=== PATIENT | female | born 1965 | race Caucasian/White ===

== ENCOUNTER 2025-01-27 19:16 | Emergency (ER) | payer MEDICARE ==
[2025-01-27] MEDS ORDERED: EPINEPHRINE ABBOJECT 1 MG/10 ML IV ONE (19:17)
[2025-01-27 19:49] VITALS: PULSE 0; RESP 12; O2SAT 100
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
== END 2025-01-27 22:00 | disposition expired ==
LOC: ED 19:16
DX: T20.39XA Burn of third degree of multiple sites of head, face, and neck, initial encounter (principal); T20.35XA Burn of third degree of scalp [any part], initial encounter; T20.37XA Burn of third degree of neck, initial encounter; T21.31XA Burn of third degree of chest wall, initial encounter; T22.392A Burn of third degree of multiple sites of left shoulder and upper limb, except wrist and hand, initial encounter; T22.391A Burn of third degree of multiple sites of right shoulder and upper limb, except wrist and hand, initial encounter; T21.32XA Burn of third degree of abdominal wall, initial encounter; T31.55 Burns involving 50-59% of body surface with 50-59% third degree burns; I46.8 Cardiac arrest due to other underlying condition; X03.0XXA Exposure to flames in controlled fire, not in building or structure, initial encounter